=== PATIENT | female | born 1970 | race American Indian/Alaskan Native ===

== ENCOUNTER 2017-01-31 11:09 | Inpatient (IN) | payer OTHER ==
[2017-01-31 11:39] LABS: Basophils % (Auto) 0.8 % (0.0-1.8); Eosinophils % (Auto) 1.1 % (0.0-4.3); Hematocrit 42.6 % (30.3-42.9); Hemoglobin 13.8 gm/dl (10.1-14.3); Mean Corpuscular HGB Conc 32 % (30-34); Mean Corpuscular Hemoglobin 26 pg (28-32); Mean Corpuscular Volume 80 fl (79-97); Platelet Count 258 K/mm3 (140-440); Red Blood Count 5.31 M/mm3 (3.65-5.03); Red Cell Distribution Width 17.9 % (13.2-15.2); White Blood Count 7.9 K/mm3 (4.5-11.0)
[2017-01-31 12:01] LABS: Anion Gap 20 mmol/L; BUN/Creatinine Ratio 17.77; Blood Urea Nitrogen 16 mg/dL (7-17); Calcium 9.3 mg/dL (8.4-10.2); Carbon Dioxide 20 mmol/L (22-30); Chloride 106.2 mmol/L (98-107); Glucose 104 mg/dL (65-100); Potassium 4.9 mmol/L (3.6-5.0); Sodium 141 mmol/L (137-145)
--- NOTE | 2017-01-31 12:23 | XRay Report ---
CHEST 2 VIEWS INDICATION: Chest pain, shortness of breath. COMPARISON: None similar at this institution. FINDINGS: PA and lateral chest radiographs suggest top normal heart size, though inspiration somewhat limited. Clear lungs. Intact bones. CONCLUSION: No acute disease. Thank you for the opportunity to participate in this patient's care.
[2017-01-31] MEDS ORDERED: ASPIRIN PO ONE (15:01)
--- NOTE | 2017-01-31 15:20 | Emergency Department Report ---
ED Chest Pain HPI - General Chief Complaint: Chest Pain Stated Complaint: HEART BEATING FAST/ANTONIO/LIGHT HEADED Time Seen by Provider: 01/31/17 15:01 Source: patient Mode of arrival: Ambulatory Limitations: No Limitations - History of Present Illness Initial Comments: 46-year-old female who awoke in the middle the night with her heart racing. Patient states that she did not have any pain. She woke up at approximately 2 AM with her heart beating extremely fast. She had a hard time catching her breath. This is a first-time this is a happy. She is smoker but otherwise has no other complaints. She's had no recent travel she has had no leg cramps. She denies any chest pain. Onset: during rest Improves With: nothing Worsens With: nothing re: dyspnea. denies: nausea, vomting, diaphoresis, sense of impending doom Other Symptoms: denies: cough, fever, syncope, rash, acid taste in mouth, leg swelling, palpitations, burping - Related Data Allergies Allergy/AdvReac Type Severity Reaction Status Date / Time Penicillins Allergy Swelling Verified 01/31/17 11:18 Heart Score - HEART Score History: Slightly suspicious EKG: Normal Age: 45-65 Risk factors: 1-2 risk factors Troponin: 1-3x normal limit HEART Score: 3 ED Review of Systems ROS: Stated complaint: HEART BEATING FAST/ANTONIO/LIGHT HEADED Other details as noted in HPI Comment: All other systems reviewed and negative Constitutional: denies: chills, fever Eyes: denies: eye pain, eye discharge, vision change ENT: denies: ear pain, throat pain Respiratory: shortness of breath. denies: cough, wheezing Cardiovascular: palpitations. denies: chest pain Endocrine: no symptoms reported Gastrointestinal: denies: abdominal pain, nausea, diarrhea Genitourinary: denies: urgency, dysuria, discharge Musculoskeletal: denies: back pain, joint swelling, arthralgia Skin: denies: rash, lesions Neurological: denies: headache, weakness, paresthesias Psychiatric: denies: anxiety, depression Hematological/Lymphatic: denies: easy bleeding, easy bruising ED Past Medical Hx - Past Medical History Previous Medical History?: No - Surgical History Past Surgical History?: Yes Additional Surgical History: d&c - Family History Family history: no significant - Social History Smoking Status: Current Every Day Smoker Substance Use Type: Alcohol ED Physical Exam - General Limitations: No Limitations General appearance: alert, in no apparent distress - Head Head exam: Present: atraumatic, normocephalic - Eye Eye exam: Present: normal appearance - ENT ENT exam: Present: mucous membranes moist - Neck Neck exam: Present: normal inspection. Absent: lymphadenopathy, thyromegaly - Respiratory Respiratory exam: Present: normal lung sounds bilaterally. Absent: respiratory distress, wheezes, rales - Cardiovascular Cardiovascular Exam: Present: regular rate, normal rhythm. Absent: systolic murmur, diastolic murmur, rubs, gallop - GI/Abdominal GI/Abdominal exam: Present: soft, normal bowel sounds. Absent: distended, tenderness - Extremities Exam Extremities exam: Present: normal inspection. Absent: pedal edema, joint swelling - Back Exam Back exam: Present: normal inspection - Neurological Exam Neurological exam: Present: alert, oriented X3 - Psychiatric Psychiatric exam: Present: normal affect, normal mood - Skin Skin exam: Present: warm, dry, intact, normal color. Absent: rash ED Course Vital Signs 01/31/17 01/31/17 01/31/17 11:18 15:22 15:32 Temperature 98.3 F Pulse Rate 111 H 89 89 Respiratory 18 18 18 Rate Blood Pressure 130/92 O2 Sat by Pulse 99 100 Oximetry 01/31/17 01/31/17 01/31/17 15:41 15:51 16:00 Temperature Pulse Rate 88 86 88 Respiratory 17 15 14 Rate Blood Pressure 120/86 120/86 120/86 O2 Sat by Pulse 99 99 100 Oximetry ED Medical Decision Making - Lab Data Result diagrams: 01/31/17 11:26 01/31/17 11:26 Laboratory Results - last 24 hr 01/31/17 01/31/17 01/31/17 11:26 11:26 11:26 WBC 7.9 RBC 5.31 H Hgb 13.8 Hct 42.6 MCV 80 MCH 26 L MCHC 32 RDW 17.9 H Plt Count 258 Lymph % (Auto) 30.5 [place] % (Auto) 11.3 H Eos % (Auto) 1.1 Baso % (Auto) 0.8 Lymph # 2.4 [place] # 0.9 H Eos # 0.1 Baso # 0.1 Seg Neutrophils % 56.3 Seg Neutrophils # 4.5 Sodium 141 Potassium 4.9 Chloride 106.2 Carbon Dioxide 20 L Anion Gap 20 BUN 16 Creatinine 0.9 Estimated GFR > 60 BUN/Creatinine Ratio 17.77 Glucose 104 H Calcium 9.3 Troponin T 0.092 H HCG, Qual Negative - EKG Data -: EKG Interpreted by Me - EKG Data 01/31/17 15:16 Initial EKG performed at 11:09 AM. Sinus tachycardia rate 109 and normal axis normal intervals no ST-T wave changes Second EKG performed at 1502 sinus rate 91 normal axis normal intervals no ST-T wave changes - Medical Decision Making Patient is a 46-year-old female who woke up with sudden onset of racing heart. She has no PE risk factors other than smoking. She denies any chest pain. She does have sinus tachycardia on her EKG and a troponin of 0.092. I do not suspect that she has ACS however given this slight elevation in troponin I feel that I need to rule out pulmonary embolism. Plan to CT PE protocol and likely admit for further evaluation. Second troponin was slightly elevated at 0.1. CT PE does not show evidence of blood clot. Given the slightly elevated troponin at this point plan admit the patient to the hospitalist service. We'll place the patient on a heparin drip. I think her differential at this point is an NSTEMI versus an arrhythmia with troponin leak. Plan to admit to hospitalist service. Portions of this chart were dictated with dictation software. There may be dictation errors contained within this note. Critical care attestation.: If time is entered above; I have spent that time in minutes in the direct care of this critically ill patient, excluding procedure time. ED Disposition Clinical Impression: Tachycardia, NSTEMI (non-ST elevated myocardial infarction) Disposition: - OP ADMIT IP TO THIS HOSP Is pt being admited?: Yes Condition: Stable Referrals: PRIMARY CARE, [Primary Care Provider] - 3-5 Days
--- NOTE | 2017-01-31 16:52 | Cat Scan Report ---
CTA CHEST INDICATION: Chest pain, shortness of breath. COMPARISON: None similar. FINDINGS: Chest CTA performed following intravenous administration of 100 cc of Omnipaque 350. Rotational MIP's also obtained. Borderline cardiomegaly. No effusions. No aortic aneurysm, dissection or suspicious pulmonary arterial filling defects. No size significant adenopathy. Few small bilateral fat containing axillary lymph nodes measure up to 2 cm on the left, axial image 34, series 2. Normal airway. Unremarkable thyroid. Clear lungs. Approximately 7 mm right apical bulla, axial image 34. Images through included upper abdomen reveal no acute abnormality. Slight diffuse bilateral adrenal hypodense prominence, possibly adenomatous hyperplasia. Slight mid thoracic spine degenerative spurring. CONCLUSION: No CT evidence of pulmonary embolism with few other findings, as above. Thank you for the opportunity to participate in this patient's care.
[2017-01-31] MEDS ORDERED: HEPARIN 10,000 UNITS/10 ML IV ONE (17:17)
--- NOTE | 2017-01-31 17:37 | Admit Criteria Form ---
<CRISTINA GOODMAN - Last Filed: 01/31/17 18:00> Admission Criteria Documentation: MYOCARDIAL INFARCTION Clinical Indications for Admission to Inpatient Care (Place 'X' for any and all applicable criteria): Admission is indicated for 1 or more of the following (1)(2)(3)(4): [ ]I. Acute SD [ X]II. Contraindications and/or Inappropriate clinical situations for Observational Care in patients with Myocardial Infarction, when ANY ONE of the following is required: [ ]a) Patient with High risk of cardiac embolism (e.g, patients with previous cardiac embolism, LVEF < 40%, age >75 and patients with prosthetic valve) 18 [ ]b) Patient with Moderate risk including DM patient, CAD and patient aged 65-75 18 [ X]c) Patient with any change in cardiac biomarker especially troponin should be managed as high risk in an inpatient setting 19 [ ]d) Physician judgement irrespective of ECG and other diagnostic findings 20 [ ]III.General contraindications and/or Inappropriate clinical situations for Observational Care in patients with Myocardial Infarction, when ANY ONE of the following is required: [ ]a) Prediction of prolongation of LOS based on ANY ONE of the following may be considered as a contraindication for observational care 2, 3, 4, 5, 6, 7, 8, 9, 10, 11 [ ]i) Age > 65 yrs. [ ]ii) Patient arriving by ambulance [ ]iii) Patient with high acuity [ ]iv) Patient requiring vital sign monitoring [ ]v) Patient on IV medication [ ]b) Systolic blood pressures greater than or equal to 180mmHg 3,12 [ ]c) Patient with altered mental status including delirium and other alteration of consciousness, (3) [ ]d) Patient whose discharge disposition will be to a nursing home home or rehabilitation home should not be managed in Emergency Department Observation Unit. CMS rule requires 3 days hospital stay before such placement. 3,13 [ ]e) Patient with failure to thrive due to broad array of etiologies 3 ,16,17 [ ]f) Inability to ambulate 3,14 Extended stay beyond goal length of stay may be needed for (1)(18)(20)(24)(25): [ ]a) Hemodynamic instability, persisting symptoms after intensive medical management, or recurring severe, prolonged symptoms [ ]b) Intravascular procedural complications such as acute vessel closure, stent thrombosis, stent malposition, or vessel dissection (26)(27)(28) [ ]c) Extravascular procedural complications such as retroperitoneal hematoma , pericardial effusion, or cardiac tamponade [ ]d) Entry site complications causing bleeding, hematoma or distal ischemia and requiring ongoing monitoring, surgical repair or surgical thrombectomy. Dangerous arrhythmia [ ]e) Complicated percutaneous coronary intervention (e.g., unsuccessful percutaneous coronary intervention or percutaneous coronary intervention of non- [place] vessel) [ ]f) Urgent or emergent surgery for complications of SD (e.g., ventricular rupture, valvular insufficiency) [ ]g) Surgical revascularization via coronary artery bypass graft [ ]h) Heart failure (e.g., pulmonary edema) [ ]i) Unstable pulmonary comorbidities, including COPD or pneumonia (31) [ ]j) Acute renal failure The original Standardized Safety content created by Standard[employer] has been revised. The portions of the content which have been revised are identified through the use of italic text or in bold, and [facility] has neither reviewed nor approved the modified material. All other unmodified content is copyright [facility] [employer] Please see references footnoted in the original [facility] edition 2016 Admission Criteria Met: Yes <JACIEL WISEMAN - Last Filed: 02/04/17 15:35> Admission Criteria Documentation: I am administratively signing this note. It has no bearing on the patient's admission status and was not filled out by me.
[2017-01-31] MEDS ORDERED: HEPARIN/ 0.45% NACL-25,000 UNIT/500 ML 25,000 UNIT/500 ML BAG IV SCH (18:00)
[2017-01-31 18:22] LABS: Hematocrit 41.1 % (30.3-42.9); Hemoglobin 13.4 gm/dl (10.1-14.3)
[2017-01-31 19:10] LABS: INR 1.08 (0.87-1.13)
[2017-01-31 19:11] LABS: Partial Thromboplastin Time 37.2 Sec. (24.2-36.6)
--- NOTE | 2017-01-31 20:41 | History and Physical Report ---
History of Present Illness Date of examination: 01/31/17 Date of admission: 01/31/17 Chief complaint: Palpitations at 2 am sudden onset History of present illness: History of Present Illness 46-year-old female who awoke in the middle the night with her heart racing. Patient states that she did not have any pain. She woke up at approximately 2 AM with her heart beating extremely fast. She had a hard time catching her breath. This is a first-time this is a happy. She is smoker but otherwise has no other complaints. She's had no recent travel she has had no leg cramps. She denies any chest pain. Onset: during rest Improves With: nothing Worsens With: nothing re: dyspnea. denies: nausea, vomting, diaphoresis, sense of impending doom Other Symptoms: denies: cough, fever, syncope, rash, acid taste in mouth, leg swelling, palpitations, burpin Past Medical Hx - Past Medical History Previous Medical History?: No - Surgical History Past Surgical History?: Yes Additional Surgical History: d&c - Family History Family history: no significant - Social History Smoking Status: Current Every Day Smoker 1 ppd Substance Use Type: Alcohol occasionally Medications and Allergies Allergies Allergy/AdvReac Type Severity Reaction Status Date / Time Penicillins Allergy Swelling Verified 01/31/17 17:21 Home Medications Medication Instructions Recorded Confirmed Last Taken Type Naproxen [Naprosyn] 500 mg PO BID 01/31/17 01/31/17 01/30/17 History Active Meds: Active Medications Heparin Sodium/Sodium Chloride (Heparin/ 0.45% Nacl-25,000 Unit/500 Ml) 25,000 unit in 500 mls @ 20 mls/hr IV TITRATE TIESHA; 1,000 UNITS/HR PRN Reason: Protocol Last Admin: 01/31/17 19:24 Dose: 1,000 units/hr, 20 mls/hr Review of Systems Constitutional: no weight loss, no weight gain, no fever, no chills, no sweats, no night sweats Ears, nose, mouth and throat: no ear pain, no ear discharge, no tinnitis, no dysphagia, no hoarseness, no sore throat Cardiovascular: chest pain, palpitations, no orthopnea, no rapid/irregular heart beat, no edema, no syncope, no lightheadedness, no shortness of breath Respiratory: no cough, no cough with sputum, no excessive sputum, no hemoptysis , no shortness of breath, no dyspnea on exertion Gastrointestinal: no abdominal pain, no nausea, no vomiting, no diarrhea, no constipation, no change in bowel habits, no hematemesis, no coffee ground emesis Genitourinary Female: no dysuria, no urinary frequency, no urgency, no stress incontinence Musculoskeletal: no neck stiffness, no neck pain, no shooting arm pain, no arm numbness/tingling, no low back pain, no shooting leg pain, no leg numbness/ tingling, no redness of joints Integumentary: no rash, no pruritis, no redness, no sores, no wounds, no jaundice, no boils, no blisters Neurological: no seizures, no syncope Psychiatric: no anxiety, no memory loss, no change in sleep habits, no sleep disturbances, no insomnia, no hypersomnia, no change in appetite, no change in libido Endocrine: no cold intolerance, no heat intolerance, no polyphagia, no excessive thirst, no polydipsia, no polyuria, no nocturia, no excessive sweating , no flushing, no weight change Hematologic/Lymphatic: no easy bruising, no easy bleeding Allergic/Immunologic: no urticaria, no allergic rhinitis, no wheezing Exam - Physical Exam Narrative exam: Lying comfortable - Constitutional Vitals: Temp Pulse Resp BP Pulse Ox 98.3 F 88 14 120/86 100 01/31/17 11:18 01/31/17 16:00 01/31/17 16:00 01/31/17 16:00 01/31/17 16:00 General appearance: Present: no acute distress, well-nourished - EENT Eyes: Present: PERRL ENT: hearing intact, clear oral mucosa - Neck Neck: Present: supple, normal ROM - Respiratory Respiratory effort: normal Respiratory: bilateral: CTA - Cardiovascular Heart rate: 91 Rhythm: regular Heart Sounds: Present: S1 & S2. Absent: rub, click - Extremities Extremities: no ischemia, pulses intact, pulses symmetrical, No edema Peripheral Pulses: within normal limits - Abdominal General gastrointestinal: Present: soft, non-tender, non-distended, normal bowel sounds Female genitourinary: Present: normal - Integumentary Integumentary: Present: clear, warm, dry - Musculoskeletal Musculoskeletal: gait normal, strength equal bilaterally - Psychiatric Psychiatric: appropriate mood/affect, intact judgment & insight - Neurologic Neurologic: CNII-XII intact, moves all extremities - Allied Health Allied health notes reviewed: nursing, case management Results - Labs CBC & Chem 7: 01/31/17 17:48 02/01/17 02:27 Labs: Laboratory Last Values WBC 7.9 K/mm3 (4.5-11.0) 01/31/17 11:26 RBC 5.31 M/mm3 (3.65-5.03) H 01/31/17 11:26 Hgb 13.4 gm/dl (10.1-14.3) 01/31/17 17:48 Hct 41.1 % (30.3-42.9) 01/31/17 17:48 MCV 80 fl (79-97) 01/31/17 11:26 MCH 26 pg (28-32) L 01/31/17 11:26 MCHC 32 % (30-34) 01/31/17 11:26 RDW 17.9 % (13.2-15.2) H 01/31/17 11:26 Plt Count 244 K/mm3 (140-440) 01/31/17 17:48 Lymph % (Auto) 30.5 % (13.4-35.0) 01/31/17 11:26 [place] % (Auto) 11.3 % (0.0-7.3) H 01/31/17 11:26 Eos % (Auto) 1.1 % (0.0-4.3) 01/31/17 11:26 Baso % (Auto) 0.8 % (0.0-1.8) 01/31/17 11:26 Lymph # 2.4 K/mm3 (1.2-5.4) 01/31/17 11:26 [place] # 0.9 K/mm3 (0.0-0.8) H 01/31/17 11:26 Eos # 0.1 K/mm3 (0.0-0.4) 01/31/17 11:26 Baso # 0.1 K/mm3 (0.0-0.1) 01/31/17 11:26 Seg Neutrophils % 56.3 % (40.0-70.0) 01/31/17 11:26 Seg Neutrophils # 4.5 K/mm3 (1.8-7.7) 01/31/17 11:26 PT 13.9 Sec. (12.2-14.9) 01/31/17 17:48 INR 1.08 (0.87-1.13) 01/31/17 17:48 APTT 37.2 Sec. (24.2-36.6) H 01/31/17 17:48 Sodium 141 mmol/L (137-145) 01/31/17 11:26 Potassium 4.9 mmol/L (3.6-5.0) 01/31/17 11:26 Chloride 106.2 mmol/L (98-107) 01/31/17 11:26 Carbon Dioxide 20 mmol/L (22-30) L 01/31/17 11:26 Anion Gap 20 mmol/L 01/31/17 11:26 BUN 16 mg/dL (7-17) 01/31/17 11:26 Creatinine 0.9 mg/dL (0.7-1.2) 01/31/17 11:26 Estimated GFR > 60 ml/min 01/31/17 11:26 BUN/Creatinine Ratio 17.77 % 01/31/17 11:26 Glucose 104 mg/dL (65-100) H 01/31/17 11:26 Calcium 9.3 mg/dL (8.4-10.2) 01/31/17 11:26 Troponin T 0.121 ng/mL (0.00-0.029) H* 01/31/17 17:48 Triglycerides 246 mg/dL (2-149) H 01/31/17 14:42 Cholesterol 243 mg/dL (50-199) H 01/31/17 14:42 LDL Cholesterol Direct 147 mg/dL (50-130) H 01/31/17 14:42 HDL Cholesterol 47 mg/dL (40-59) 01/31/17 14:42 Cholesterol/HDL Ratio 5.17 % 01/31/17 14:42 TSH 1.450 mlU/mL (0.270-4.200) 01/31/17 14:42 HCG, Qual Negative (Negative) 01/31/17 11:26 - Imaging and Cardiology EKG: report reviewed (91/min NSR) Chest x-ray: report reviewed (NAF) CT scan - chest: report reviewed (No PE) Assessment and Plan Advance Directives: Yes (FC) VTE prophylaxis?: Chemical Plan of care discussed with patient/family: Yes - Patient Problems (1) Acute coronary syndrome Current Visit: Yes Status: Acute Plan to address problem: Serial cardiac enzymes and Lexiscan in AM (2) Nicotine dependence Current Visit: Yes Status: Acute Qualifiers: Nicotine product type: cigarettes Substance use status: S Plan to address problem: Nicoderm patch initiated (3) Tachycardia Current Visit: Yes Status: Resolved Plan to address problem: Paroxysmal May need w/u as outpatient with event monitor To follow with cardiology (4) DVT prophylaxis Current Visit: Yes Status: Acute Plan to address problem: Lovenox 40 mg sq qd
[2017-01-31] MEDS ORDERED: DILAUDID IV PRN (20:42)
[2017-01-31] MEDS ORDERED: MILK OF MAGNESIA PO PRN (20:42)
[2017-01-31] MEDS ORDERED: ZOFRAN IV PRN (20:42)
[2017-01-31] MEDS ORDERED: PERCOCET 5/325 PO PRN (20:42)
[2017-01-31] MEDS ORDERED: TYLENOL PO PRN (20:42)
[2017-01-31] MEDS ORDERED: DULCOLAX PR PRN (20:42)
[2017-01-31 21:40] LABS: Creatine Kinase MB 5.3 ng/mL (0.0-4.0)
[2017-02-01] MEDS: NAPROSYN PO SCH ×2 (01:01→09:44)
[2017-02-01 03:16] LABS: Anion Gap 21 mmol/L; BUN/Creatinine Ratio 21.42; Blood Urea Nitrogen 15 mg/dL (7-17); Calcium 8.6 mg/dL (8.4-10.2); Carbon Dioxide 19 mmol/L (22-30); Glucose 95 mg/dL (65-100); Sodium 140 mmol/L (137-145)
[2017-02-01 03:17] LABS: Creatine Kinase MB 4.2 ng/mL (0.0-4.0)
[2017-02-01] MEDS ORDERED: HABITROL TD SCH (10:00)
[2017-02-01] MEDS ORDERED: LEXISCAN IV ONE ×2 (11:07→11:11)
--- NOTE | 2017-02-01 12:25 | Consultation ---
History of Present Illness Consult date: 02/01/17 Consult reason: shortness of breath, other (palpitations) History of present illness: Patient's a 46-year-old woman with no prior cardiac history. She presented to the emergency room complaining of acute onset of palpitations, perceived as a fast heartbeat that was sustained over several minutes. There was association shortness of breath. There was no chest pain. There was no dizziness or syncope. She presented to the emergency room where the initial EKG was a mild sinus tachycardia at 109. Other than the mild sinus tachycardia, her ECG was normal. She was admitted, underwent a rule out [place] protocol, which found a mild isolated rise in the troponin, of uncertain significance. Patient has had no further palpitations since admission. Patient is currently in the stress lab, a thallium stress test was ordered by the medical team. Her heart rhythm is currently in normal sinus rhythm at 70. During this stay on telemetry, she has been in a stable sinus rhythm, no ectopy and no tachycardia or bradycardia arrhythmias. Past History Past Medical History: No medical history Medications and Allergies Allergies Allergy/AdvReac Type Severity Reaction Status Date / Time Penicillins Allergy Swelling Verified 01/31/17 17:21 Home Medications Medication Instructions Recorded Confirmed Last Taken Type Naproxen [Naprosyn] 500 mg PO BID 01/31/17 01/31/17 01/30/17 History Active Meds: Active Medications Acetaminophen (Tylenol) 650 mg PO Q4H PRN PRN Reason: Pain MILD(1-3)/Fever >100.5/VERDIN Bisacodyl (Dulcolax) 10 mg [place] QDAY PRN PRN Reason: Constipation unrelieved by MOM Hydromorphone HCl (Dilaudid) 0.5 mg IV Q3H PRN PRN Reason: Pain , Severe (7-10) Heparin Sodium/Sodium Chloride (Heparin/ 0.45% Nacl-25,000 Unit/500 Ml) 25,000 unit in 500 mls @ 20 mls/hr IV TITRATE TIESHA; 1,000 UNITS/HR PRN Reason: Protocol Last Titration: 02/01/17 09:42 Dose: 1,000 units/hr, 20 mls/hr Magnesium Hydroxide (Milk Of Magnesia) 30 ml PO Q4H PRN PRN Reason: Constipation Naproxen (Naprosyn) 500 mg PO BID TIESHA Last Admin: 02/01/17 09:44 Dose: Not Given Nicotine (Habitrol) 21 mg TD QDAY [facility] Last Admin: 02/01/17 09:44 Dose: Not Given Ondansetron HCl (Zofran) 4 mg IV Q8H PRN PRN Reason: N/V unrelieved by Reglan Oxycodone/Acetaminophen (Percocet 5/325) 1 tab PO Q6H PRN PRN Reason: Pain, Moderate (4-6) Review of Systems Cardiovascular: palpitations, shortness of breath, no chest pain, no orthopnea, no rapid/irregular heart beat, no edema, no syncope, no lightheadedness Physical Examination Vital Signs Temp Pulse Resp BP Pulse Ox 98.3 F 111 H 18 130/92 99 01/31/17 11:18 01/31/17 11:18 01/31/17 11:18 01/31/17 11:18 01/31/17 11:18 General appearance: no acute distress HEENT: Positive: PERRL Neck: Positive: neck supple Cardiac: Positive: Reg Rate and Rhythm Lungs: Positive: clear to auscultation Neuro: Positive: Grossly Intact Abdomen: Positive: Soft Female genitourinary: deferred Skin: Positive: Clear Extremities: Absent: edema Results 01/31/17 17:48 02/01/17 02:27 Cardiac Enzymes 01/31/17 02/01/17 Range/Units 20:56 02:27 CK-MB (CK-2) 5.3 H 4.2 H (0.0-4.0) ng/mL Comprehensive Metabolic Panel 02/01/17 Range/Units 02:27 Sodium 140 (137-145) mmol/L Potassium 4.0 (3.6-5.0) mmol/L Chloride 104.0 (98-107) mmol/L Carbon Dioxide 19 L (22-30) mmol/L BUN 15 (7-17) mg/dL Creatinine 0.7 (0.7-1.2) mg/dL Glucose 95 (65-100) mg/dL Calcium 8.6 (8.4-10.2) mg/dL EKG interpretations - Telemetry EKG Rhythm: Sinus Rhythm Assessment and Plan - Patient Problems (1) Palpitations Current Visit: Yes Status: Acute Plan to address problem: It is plausible that patient's resenting complaint was due to a transient tachycardia arrhythmia which occurred at home and has not manifested during the period of hospitalization. Due to the associated shortness of breath, I will get an echocardiogram for left ventricular function assessment. If echocardiogram and stress test are benign, we'll plan discharge on empiric beta armando therapy, with additional testing in the outpatient such as an event monitor. (2) Elevated troponin Current Visit: Yes Status: Acute Plan to address problem: The isolated troponin rise appears nonspecific and may have been associated with a possible sustained tachyarrhythmia,
--- NOTE | 2017-02-01 15:22 | Discharge Summary ---
Providers - Providers Date of Admission: 01/31/17 20:42 Date of discharge: 02/01/17 Attending physician: PEDRO SIDDIQUI 02/01/17 06:19 Consult to Physician [CONS] Routine Consulting Provider: MITRA LEWIS Reason For Exam: tachycardia paroxysmal Place consult to:: colon heart Notified:: greer Was contact made?: Yes Primary care physician: LOGGER Hospitalization Condition: Stable Hospital course: Patient 46-year-old woman who presents with palpitations and shortness of breath. She denies ever having chest pains. Transthoracic echocardiogram report is normal systolic function estimated EF 55- 60%, mild concentric left ventricular hypertrophy, mild MR Stress test was negative per Dr. Lewis CTA of the chest: No evidence of pulmonary embolism Per cardiology, Dr. Lewis: (1) Palpitations Current Visit: Yes Status: Acute Plan to address problem: It is plausible that patient's resenting complaint was due to a transient tachycardia arrhythmia which occurred at home and has not manifested during the period of hospitalization. Due to the associated shortness of breath, I will get an echocardiogram for left ventricular function assessment. If echocardiogram and stress test are benign, we'll plan discharge on empiric beta armando therapy, with additional testing in the outpatient such as an event monitor. (2) Elevated troponin Current Visit: Yes Status: Acute Plan to address problem: The isolated troponin rise appears nonspecific and may have been associated with a possible sustained tachyarrhythmia,(1) Palpita sound and it wastions Current Visit: Yes Status: Acute Plan to address problem: It is plausible that patient's resenting complaint was due to a transient tachycardia arrhythmia which occurred at home and has not manifested during the period of hospitalization. Due to the associated shortness of breath, I will get an echocardiogram for left ventricular function assessment. If echocardiogram and stress test are benign, we'll plan discharge on empiric beta armando therapy, with additional testing in the outpatient such as an event monitor. Final diagnoses: -Palpitation most likely due to transient tachyarrhythmia -Elevated troponin, nonspecific per cardiology may be related to tachyarrhythmia -New dyslipidemia: add statin, -tobacco dependance: stop, nicotine patch advised -Obesity BMI 30.1: Lifestyle changes stressed Disposition: DC-01 TO HOME OR SELFCARE Time spent for discharge: 36 minutes Core Measure Documentation - Palliative Care Palliative Care/ Comfort Measures: Not Applicable - Core Measures Any of the following diagnoses?: none - VTE Discharge Requirements Deep Vein Thrombosis/Pulmonary Embolism Present on Admission: No Has pt received <5 days of overlap therapy or INR<2.0: No Anticoagulant overlap therapy prescribed at discharge: No Contraindication No Overlap Therapy order at DC: Not Indicated Exam - Physical Exam Narrative exam: GEN: WDWN, NAD, AWAKE, ALERT, ORIENTATED x 3 HEENT: NCAT, PERRL, EOMI, OP CLEAR NECK: SUPPLE, NO THYROMEGALY, NO JVD, NO LAD CVS: RRR, NORMAL S1S2 LUNGS/CHEST: CTA B, NORMAL CHEST EXPANSION B, GOOD AIR ENTRY B ABD: SOFT, NTND, GBS, NO REBOUND OR GUARDING EXT/SKIN: NO SIGNIFICANT EDEMA OR RASH MSK: FROM X 4 EXTREMITIES NEURO: CN 2-12 GROSSLY INTACT, NO FOCAL DEFICITS PSY: CALM - Constitutional Vitals: Temp Pulse Resp BP Pulse Ox 98.6 F 85 20 125/62 99 02/01/17 14:30 02/01/17 14:30 02/01/17 14:30 02/01/17 14:30 02/01/17 14:30 Plan Activity: other (no strenous activites until cleared by PCP. ) Diet: low cholesterol, low salt Special Instructions: smoking cessation Additional Instructions: Please see Dr. Lewis in his office for a Event Monitor setup Follow up with: PRIMARY MD WINDY [Primary Care Provider] - 3-5 Days MITRA LEWIS MD [Staff Physician] - 7 Days Prescriptions: AtorvaSTATin [Lipitor] 20 mg PO QHS #30 tab Aspirin [Aspirin BABY CHEW TAB] 81 mg PO QDAY #30 tab Metoprolol [Lopressor] 25 mg PO BID #60 tablet
[2017-02-01 17:15] VITALS: BP 132/62
--- NOTE | 2017-02-02 05:48 | Treadmill Report ---
THALLIUM STRESS TEST LEFT VENTRICLE: Left ventricular chamber size is within normal spread. Perfusion study demonstrates a small fixed apical defect consistent with normal apical thinning. Otherwise, homogeneous uptake of the tracer in all segments. No significant reversible perfusion defects identified. Gated analysis demonstrates normal left ventricular systolic function, ejection fraction of 73%. CONCLUSION: No demonstrable ischemia on thallium perfusion imaging. Negative study. JOB# [id number] CA/NTS
== END 2017-02-01 18:33 | disposition home or self-care (01) | DRG 310 ==
LOC: ED 11:09 → 4A 20:42
PROVIDERS: ADMIT Internal Medicine; ATTEND Internal Medicine
DX: R00.0 Tachycardia, unspecified (principal); F17.210 Nicotine dependence, cigarettes, uncomplicated; I11.9 Hypertensive heart disease without heart failure; I34.0 Nonrheumatic mitral (valve) insufficiency; E78.5 Hyperlipidemia, unspecified; E66.9 Obesity, unspecified; Z68.30 Body mass index [BMI] 30.0-30.9, adult; Z88.0 Allergy status to penicillin
CPT/HCPCS: 36415; 71020; 71275; 78452; 80048; 80061; 82550; 82553; 83036; 84443; 84484; 84703; 85014; 85018; 85025; 85049; 85520; 85610; 85730; 93005; 93010; 93017; 93306; 96374; A9502; J1644; J2785; Q9967